=== PATIENT | female | born 1965 | race Caucasian/White ===

== ENCOUNTER 2017-07-19 11:25 | Inpatient (IN) | payer OTHER ==
[2017-07-19] MEDS ORDERED: SODIUM CHLORIDE 0.9% 1000ML 1,000 ML IV ONE (11:39)
[2017-07-19] MEDS ORDERED: AZITHROMYCIN 250 MG TAB PO ONE (12:00)
[2017-07-19] MEDS ORDERED: CEFTRIAXONE 1 GM PDS 2 GM in SODIUM CHLORIDE 0.9% 100 ML 100 ML IV ONE (12:00)
[2017-07-19] MEDS ORDERED: ACETAMINOPHEN 500 MG 500 MG TAB PO PRN (13:09)
[2017-07-19] MEDS ORDERED: CEFTRIAXONE 1 GM PDS ONE (13:16)
[2017-07-19] MEDS ORDERED: SODIUM CHLORIDE 0.9% 100 ML 100 ML IV ONE (13:16)
[2017-07-19] MEDS: DEXTROSE/SALINE 0.45/KCL 20MEQ 1,000 ML/1,000 ML SOL IV SCH ×2 (14:09→21:55)
[2017-07-19] MEDS ORDERED: ALBUTEROL NEB SOL 2.5MG/3ML 1 VIAL SOL NEB PRN (14:18)
[2017-07-19] MEDS: OSELTAMIVIR PHOSPHATE 75 MG CAP PO SCH ×2 (14:37→20:55)
[2017-07-19] MEDS: IBUPROFEN 600 MG TAB PO PRN (15:28)
[2017-07-19] MEDS: ALBUTEROL/IPRATROPIUM 1 VIAL SOL INH SCH ×2 (15:29→20:49)
[2017-07-20] MEDS: ALBUTEROL/IPRATROPIUM 1 VIAL SOL INH SCH ×3 (02:45→14:19)
[2017-07-20] MEDS: DEXTROSE/SALINE 0.45/KCL 20MEQ 1,000 ML/1,000 ML SOL IV SCH (05:07)
[2017-07-20 08:30] LABS: CALCIUM 7.5 mg/dl (8.5-10.1); POTASSIUM 3.9 mMol/L (3.5-5.1)
[2017-07-20] MEDS ORDERED: ENOXAPARIN 30 MG SOL SC SCH (09:00)
[2017-07-20] MEDS ORDERED: AZITHROMYCIN 250 MG TAB PO SCH (09:00)
[2017-07-20] MEDS ORDERED: OSELTAMIVIR PHOSPHATE 75 MG CAP PO ONE (09:07)
[2017-07-20] MEDS: OSELTAMIVIR PHOSPHATE 75 MG CAP PO SCH (09:11)
[2017-07-20] MEDS ORDERED: CEFTRIAXONE 1 GM (PREMIX) 1 GM/50 ML SOL IV ONE (11:24)
[2017-07-20] MEDS ORDERED: CEFTRIAXONE 1 GM (PREMIX) 1 GM/50 ML SOL IV SCH (12:00)
[2017-07-20] MEDS ORDERED: SODIUM CHLORIDE 0.9% FLUSH 10 ML SOL IV SCH (12:00)
[2017-07-20] MEDS: IBUPROFEN 600 MG TAB PO PRN (13:00)
[2017-07-20 16:25] VITALS: BP 100/66; PULSE 78; RESP 18; TEMP 98.5; O2SAT 97
== END 2017-07-20 17:50 | disposition home or self-care (01) | DRG 195 ==
LOC: ACUTE CARE 11:25
PROVIDERS: ADMIT Emergency Medicine; ATTEND Emergency Medicine
DX: J18.9 Pneumonia, unspecified organism (principal); E86.0 Dehydration
CPT/HCPCS: 71046; 80048; 87040; 94640; 94664; 99070; J0696; J7603; J7620; A9270-GY; J1650